=== PATIENT | female | born 1965 | race Caucasian/White ===

== ENCOUNTER 2022-03-15 09:54 | Emergency (ER) | payer BC, SELFPAY ==
[2022-03-15 10:01] VITALS: BP 137/87; PULSE 91; RESP 16; TEMP 36.2; O2SAT 97; BMI 28.3
[2022-03-15 10:04] VITALS: BP 124/74; PULSE 87; RESP 16; O2SAT 98
--- NOTE | 2022-03-15 10:24 | W.ED.HA ---
HPI - Headache General: Chief Complaint: Headache Stated Complaint: migraine Time Seen by Provider: 03/15/22 10:05 Source: patient Mode of arrival: ambulatory Limitations: no limitations History of Present Illness: This patient presents to our emergency department because she has been having a protracted recurrent migraine over the past 3 weeks. She states it is very typical for her in terms of its location, intensity, other symptoms. She states it has been predominantly left-sided sometimes involving the entire left side of her head and scalp. She states is throbbing in nature. Sometimes she gets scotomata and sometimes not associated with her headache. She relates that she had Covid in September and she has some issues more with nausea with headaches which she has some mild nausea now. She denies any head trauma, fevers etc. No sudden onset of just been a waxing and waning headache over the past 2 to 3 weeks. She has had some emotional events with the of her [id number] over the last 24 hours as well. She does not use tobacco but does occasionally drink alcohol sometimes to help with her headache. She is taken her usual Maxalt without much relief. She is under the care of physician for her chronic migraines. MD elicited complaint: migraine Pertinent past history: migraines Onset description: gradually Location: left, frontal, temporal and retro-orbital Severity: similar to previous episodes Quality & Timing: aching and throbbing Exacerbating factors: light and noise Relieving factors: rest and dark room Associated symptoms: Reports nausea and photophobia; Deny chest pain, confusion, fever(s), rash or vomiting Treatments prior to arrival: migraine medication Review of Systems Const: Denies: fever(s), chills or body aches Eyes: Denies: change in vision, eye discharge or eye redness ENMT: Denies: throat pain, odynophagia, dental pain, change in hearing, disequilibrium or nasal congestion Card: Denies: chest pain, palpitations or irregular heart rhythm Resp: Denies: dyspnea, productive cough or non-productive cough GI: Reports: nausea; Denies: abdominal pain or vomiting : Denies: flank pain, difficulty voiding or dysuria Musc: Denies: neck pain, back pain or extremity pain Skin/Breast: Denies: rash or erythema Neuro: Reports: headache(s); Denies: numbness in extremities, weakness in extremities, sensory changes, lack of coordination, dizziness, vertigo, confusion, Slurred speech present or difficulty communicating thoughts Psych: Reports: anxiety Endo: Denies: polyuria or polydipsia Physical Exam Narrative: EXAM NARRATIVE: Patient appears to be comfortable she interacts and makes good eye contact. She does have sunglasses in her lap but is not wearing them at the time of our interaction. Speech is goal-directed and fluent. Const: COMMON NORMALS: average body habitus and patient oriented x3 HENMT: COMMON NORMALS: normocephalic, atraumatic, TM's normal bilaterally, Normal nasal mucous membranes and turbinates present and moist oral mucous membranes HEAD & SCALP: normocephalic and atraumatic; no scalp tenderness and no Temporal artery tenderness present FACE & SINUS: normal facial exam, sinuses nontender and face symmetric NOSE: Normal nasal mucous membranes and turbinates present TYMPANIC MEMBRANE: TM's normal bilaterally Eye: COMMON NORMALS: Equal, round and reactive pupils present, EOMs intact bilaterally and conjunctivae normal CONJUNCTIVA: Yes conjunctivae normal PUPIL: Yes Equal, round and reactive pupils present DIRECT OPHTHALMOSCOPY: Yes photophobia Neck/C-Spine: COMMON NORMALS: full ROM, no meningeal signs and No carotid bruits CERVICAL SPINE: No Cervical spine tenderness, No Paracervical muscle tenderness, No Paracervical spasm and No Trapezius muscle tenderness Lymph: LYMPHATIC: no lymphadenopathy noted Resp: COMMON NORMALS: normal respiratory effort and clear to auscultation bilaterally AUSCULTATION: clear to auscultation bilaterally Cardio: COMMON NORMALS: regular rate, regular rhythm, No murmurs present (Cardio) and Peripheral pulses 2+ throughout RATE: regular rate RHYTHM: regular rhythm PERIPHERAL PULSES: Peripheral pulses 2+ throughout GI: COMMON NORMALS: Soft to palpation PALPATION: Yes Soft to palpation : COMMON NORMALS: Yes no CVA tenderness BLADDER/KIDNEY EXAM: Yes no CVA tenderness Back/Pelvis: COMMON NORMALS: no CVA tenderness, thoracic and lumbar spine normal to inspection, no thoracic nor lumbar tenderness and thoraco-lumbar ROM normal Extremity: COMMON NORMALS: normal to inspection, full ROM, capillary refill normal, no calf tenderness and no pedal edema Neuro: COMMON NORMALS: patient oriented x3, moves all extremities, no focal motor deficits, no sensory deficits noted and deep tendon reflexes 2+ bilaterally MENINGEAL SIGNS: Yes no meningeal signs CRANIAL NERVES: Yes CN normal except as noted SPEECH: speech normal MOTOR EXAM: Pronator motor function not present and no tremor noted Psych: COMMON NORMALS: mental status grossly normal, Normal thought process present and cooperative THOUGHT PROCESS: Normal thought process present Skin: COMMON NORMALS: no rashes or lesions noted, no wounds and turgor normal GENERAL SKIN EXAM: no rashes or lesions noted and turgor normal Course Reevaluation(s): Reevaluation #1: Patient states she is feeling much improved. IV fluids are almost 50% infused. Time: 11:27 Vital Signs: Vital signs: Vital Signs Temperature 97.2 F L 03/15/22 10:01 Pulse Rate 87 03/15/22 10:04 Respiratory Rate 16 03/15/22 10:04 Blood Pressure 124/74 03/15/22 10:04 Pulse Oximetry 98 03/15/22 10:04 MDM - Headache Medical Decision Making Patient with history of chronic migraines who presents to the emergency room because of persistent migraine. Her examination is nonfocal not suggestive of a very worrisome secondary etiology to her headache as the headache is precisely in exactly the same location and of the same onset etc. as her chronic headaches. Her clinical examination is nonfocal. She has responded to usual migraine cocktail and is stable to be discharged home. Medical Records I reviewed the patient's medical records. Discharge Plan Discharge Clinical Impression: Headache Condition: Stable Discharge Orders: Discharge ED (Routine); Ordered 03/15/22 Ordered By: Eren Schmidt Discharge Diet: Usual diet Discharge Activity: Resume usual activity Patient Instructions: Headache - Migraine (Adult) Activity Restrictions/Additional Instructions: Continue all your usual medications. If your headache returns, worsens or other concerning symptoms develop at any time return to this or the nearest emergency department. Follow-up with your regular doctor for any consideration for alterations in your chronic therapy Coding Level of Care Code ED Early Childhood Services Coordinator for [facility] Exam Comprehensive
[2022-03-15] MEDS: diphenhydrAMINE 50 mg/mL SDV 1mL 12.5 MG IVP (10:53)
[2022-03-15] MEDS: sodium chloride 0.9% 1,000 ML 999 ML IV (10:53)
[2022-03-15] MEDS: metoclopramide 5 mg/mL SDV 2 mL 10 MG IVP (10:58)
[2022-03-15] MEDS: dexamethasone 10 mg/mL INJ IVP (11:01)
[2022-03-15 12:09] VITALS: BP 120/95; PULSE 88; RESP 18; TEMP 36.6; O2SAT 96
== END 2022-03-15 12:11 ==
PROVIDERS: Emergency Provider Emergency Medicine
DX: G43.709 Chronic migraine without aura, not intractable, without status migrainosus (principal); Z86.16 Personal history of COVID-19
CPT/HCPCS: 96361; 96374; 96375; 99283; J1100; J1200; J2765; J7030

== ENCOUNTER → 2022-04-15 09:23 | Outpatient (BNVA) | payer BC, SELFPAY | PROVIDERS: PCP Clinical Nurse Specialist Adult Health; Visit Provider Clinical Nurse Specialist Adult Health | DX: I10 Essential (primary) hypertension (principal) | CPT/HCPCS: 80053; 80061; 85025; 85651; 86140 ==

== ENCOUNTER → 2023-03-22 09:25 | Outpatient (BNVA) | payer BC, SELFPAY | PROVIDERS: PCP Clinical Nurse Specialist Adult Health; Visit Provider Clinical Nurse Specialist Adult Health | DX: R35.0 Frequency of micturition (principal); R31.9 Hematuria, unspecified | CPT/HCPCS: 81000; 87077; 87086; 87184 ==

== ENCOUNTER → 2025-04-05 10:53 | Outpatient (BNVA) | payer BC, SELFPAY | PROVIDERS: PCP Clinical Nurse Specialist Adult Health; Visit Provider Clinical Nurse Specialist Adult Health | DX: I10 Essential (primary) hypertension (principal) | CPT/HCPCS: 80053; 80061; 84443; 85025 ==

== ENCOUNTER 2025-06-07 14:34 | Outpatient (CLI) | payer BC, SELFPAY | END 2025-06-07 14:35 | disposition home or self-care (01) | LOC: SLEEP 14:34 | PROVIDERS: PCP Clinical Nurse Specialist Adult Health; Referring Provider Clinical Nurse Specialist Adult Health; Visit Provider Internal Medicine Pulmonary Disease | DX: G47.33 Obstructive sleep apnea (adult) (pediatric) (principal); G47.36 Sleep related hypoventilation in conditions classified elsewhere | CPT/HCPCS: G0399 ==

== ENCOUNTER → 2025-07-06 14:13 | Outpatient (BNVA) | payer BC, SELFPAY | PROVIDERS: PCP Clinical Nurse Specialist Adult Health; Visit Provider Nurse Practitioner Women's Health | DX: Z01.419 Encounter for gynecological examination (general) (routine) without abnormal findings (principal); N95.1 Menopausal and female climacteric states | CPT/HCPCS: 82306; 82670; 87624 ==

== ENCOUNTER → 2025-11-09 11:06 | Outpatient (BNVA) | payer BC, SELFPAY | PROVIDERS: PCP Clinical Nurse Specialist Adult Health; Visit Provider Nurse Practitioner Women's Health | DX: N95.1 Menopausal and female climacteric states (principal) | CPT/HCPCS: 82670 ==